=== PATIENT | male | born 1980 | race African-American/Black ===

== ENCOUNTER 2019-01-15 15:55 | Emergency (ER) | payer MEDICAID ==
[~2019-01-15] VITALS: Ht 182.9 cm; Wt 96.0 kg
[~2019-01-15 15:55] MED LIST: AZIT250T PO; BACDS PO; CLIN150C2 PO; HYDR1TAB PO
[2019-01-15 16:34] VITALS: BP 151/94
[2019-01-15] MEDS ORDERED: CEPH-572 PO (17:09)
[2019-01-15] MEDS ORDERED: SULF1TAB49 PO (17:09)
[2019-01-15] MEDS ORDERED: sulfamethoxazole/trimethoprim DS (800/160mg) tablet PO ONE (17:10)
== END 2019-01-15 17:30 | disposition home or self-care (01) ==
LOC: ER 15:56
DX: K13.0 Diseases of lips (principal); L02.818 Cutaneous abscess of other sites; F12.90 Cannabis use, unspecified, uncomplicated; F15.90 Other stimulant use, unspecified, uncomplicated; F10.99 Alcohol use, unspecified with unspecified alcohol-induced disorder; Z59.0 Homelessness; Z79.899 Other long term (current) drug therapy; Y90.9 Presence of alcohol in blood, level not specified
CPT/HCPCS: 10060; 99283

== ENCOUNTER 2019-06-10 14:46 | Emergency (ER) | payer MEDICAID | END 2019-06-10 16:57 | disposition left against medical advice (07) | LOC: ER 14:46 | DX: Z00.00 Encounter for general adult medical examination without abnormal findings (principal); Z53.21 Procedure and treatment not carried out due to patient leaving prior to being seen by health care provider ==

== ENCOUNTER 2019-06-12 17:47 | Emergency (ER) | payer MEDICAID ==
[~2019-06-12] VITALS: Ht 182.9 cm; Wt 88.6 kg
[2019-06-12 18:10] VITALS: BP 153/108
[2019-06-12] MEDS ORDERED: BENZ-16 PO (19:24)
[2019-06-12] MEDS ORDERED: AZIT250T PO (19:24)
== END 2019-06-12 19:42 | disposition home or self-care (01) ==
LOC: ER 17:48
DX: J06.9 Acute upper respiratory infection, unspecified (principal); F17.210 Nicotine dependence, cigarettes, uncomplicated; F17.220 Nicotine dependence, chewing tobacco, uncomplicated; F12.90 Cannabis use, unspecified, uncomplicated; F15.90 Other stimulant use, unspecified, uncomplicated; Z59.0 Homelessness; Z79.899 Other long term (current) drug therapy
CPT/HCPCS: 99283

== ENCOUNTER 2019-06-27 12:26 | Emergency (ER) | payer MEDICAID ==
[~2019-06-27] VITALS: Ht 182.9 cm; Wt 81.8 kg
[2019-06-27 12:26] VITALS: BP 150/101
[~2019-06-27 12:26] MED LIST changes: +BENZ-16 PO
== END 2019-06-27 12:38 | disposition home or self-care (01) ==
LOC: ER 12:26
DX: Z02.89 Encounter for other administrative examinations (principal); I10 Essential (primary) hypertension; F12.90 Cannabis use, unspecified, uncomplicated; F15.90 Other stimulant use, unspecified, uncomplicated; Z59.0 Homelessness
CPT/HCPCS: 99283

== ENCOUNTER 2019-07-21 10:25 | Emergency (ER) | payer MEDICAID ==
[~2019-07-21] VITALS: Ht 188 cm; Wt 86.4 kg
[~2019-07-21 10:25] MED LIST changes: -BENZ-16 PO
[2019-07-21 10:32] VITALS: BP 147/114
[2019-07-21] MEDS ORDERED: LIDOcaine 1% W/epiNEPHrine 1:200,000 10ml vial IJ ONE (10:45)
[2019-07-21] MEDS ORDERED: SULF1TAB49 PO (11:16)
[2019-07-21] MEDS ORDERED: HYDR-4383 PO (11:33)
== END 2019-07-21 11:42 | disposition home or self-care (01) ==
LOC: ER 10:25
DX: L02.01 Cutaneous abscess of face (principal); F12.90 Cannabis use, unspecified, uncomplicated; F15.90 Other stimulant use, unspecified, uncomplicated; Z59.0 Homelessness
CPT/HCPCS: 10060; 99283

== ENCOUNTER 2019-08-08 08:01 | Emergency (ER) | payer MEDICAID ==
[~2019-08-08] VITALS: Ht 185.4 cm; Wt 95.5 kg
[~2019-08-08 08:01] MED LIST changes: +HYDR-4383 PO
[2019-08-08 08:27] VITALS: BP 135/80
--- NOTE | 2019-08-08 08:28 | NUR ---
PT BROUGHT IN BY [facility] FOR MEDIACAL CLEARANCE PT WAS TASED AND PLACED IN HOBLE MELISSA RESTRANT. PT WAS NOT WANTING TO WAKE UP. BUT NOW IS AWAKE AND TALKING
[2019-08-08] MEDS ORDERED: TETanus/Pertussis (Acell)/Diphther VAC/PF (Tdap-Adult) 0.5ml syringe IMVAC ONE (08:45)
== END 2019-08-08 09:18 ==
LOC: ER 08:02
DX: T75.4XXA Electrocution, initial encounter (principal); F12.90 Cannabis use, unspecified, uncomplicated; F15.90 Other stimulant use, unspecified, uncomplicated; F17.200 Nicotine dependence, unspecified, uncomplicated; Z59.0 Homelessness; Z79.2 Long term (current) use of antibiotics; Z79.899 Other long term (current) drug therapy; Y35.831A Legal intervention involving a conducted energy device, law enforcement official injured, initial encounter; Y93.89 Activity, other specified; Y92.89 Other specified places as the place of occurrence of the external cause; Y99.8 Other external cause status
CPT/HCPCS: 90471; 90715; 99283

== ENCOUNTER 2021-01-28 10:49 | Emergency (ER) | payer MEDICAID | END 2021-01-28 13:04 | disposition left against medical advice (07) | LOC: ER 10:50 | DX: S69.90XA Unspecified injury of unspecified wrist, hand and finger(s), initial encounter (principal); Z53.21 Procedure and treatment not carried out due to patient leaving prior to being seen by health care provider; X58.XXXA Exposure to other specified factors, initial encounter; Y93.89 Activity, other specified; Y92.89 Other specified places as the place of occurrence of the external cause; Y99.8 Other external cause status ==

== ENCOUNTER 2023-03-29 04:22 | Emergency (ER) | payer MEDICAID ==
[~2023-03-29] VITALS: Ht 182.9 cm; Wt 104.5 kg
[~2023-03-29 04:22] MED LIST changes: +DIPH-186 PO; +METO-292 PO
[2023-03-29 08:50] VITALS: BP 139/89; PULSE 94; RESP 14; TEMP 97.8; O2SAT 99
[2023-03-29] MEDS ORDERED: CEPH-585 PO (09:10)
== END 2023-03-29 09:23 | disposition home or self-care (01) ==
LOC: ER 04:23
DX: S80.811A Abrasion, right lower leg, initial encounter (principal); L03.115 Cellulitis of right lower limb; F17.200 Nicotine dependence, unspecified, uncomplicated; Z59.00 Homelessness unspecified; Z79.899 Other long term (current) drug therapy; X58.XXXA Exposure to other specified factors, initial encounter; Y93.89 Activity, other specified; Y92.89 Other specified places as the place of occurrence of the external cause; Y99.8 Other external cause status
CPT/HCPCS: 87070; 87077; 87186; 99283